=== PATIENT | male | born 1970 | race Caucasian/White ===

== ENCOUNTER 2022-11-30 19:57 | Emergency (ER) | payer OTHER, BC, SELFPAY ==
[2022-11-30] VITALS (17 sets, daily range): BP systolic 117–134; BP diastolic 81–91; PULSE 95–107; RESP 16; TEMP 37.1; O2SAT 92–95; BMI 42.3
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
[2022-11-30] MEDS: ONDANSETRON 2 MG/ML inj 4 MG IVP (21:33)
[2022-11-30] MEDS: HYDROmorphone 0.5 mg/0.5 ml inj IVP ×2 (21:33→22:57)
[2022-11-30 21:58] LABS: Basophils Absolute Auto 0.04 K/uL (0.00-0.30); Basophils Percent Auto 0.4 % (0.0-3.0); Eosinophils Absolute Auto 0.29 K/uL (0.00-0.50); Hematocrit 43.1 % (37.0-53.0); Hemoglobin* 14.3 gm/dL (13.5-17.5); Immature Granulocytes Abs Auto 0.02 K/uL (0.00-0.30); Immature Granulocytes Pct Auto 0.2 %; Lymphocytes Absolute Auto 2.79 K/uL (0.90-2.90); Lymphocytes Percent Auto 28.7 % (20-44); Mean Corpuscular HGB Conc 33 gm/dL (32-36); Mean Corpuscular Hemoglobin 29 pg (26-34); Mean Corpuscular Volume 89 fL (80-100); Monocytes Percent Auto 6.7 % (0.0-11.0); Neutrophils Absolute Auto 5.94 K/uL (1.7-7.0); Platelet Count* 297 K/uL (140-440); RDW Coefficient of Variation % 12.9 % (11.5-15.5); Red Blood Count 4.86 m/uL (4.30-5.90); White Blood Count* 9.73 K/uL (4.50-11.00)
[2022-11-30 22:00] LABS: Chloride* 103 mmol/L (96-114); Potassium* 4.4 mmol/L (3.6-5.1); Sodium* 140 mmol/L (135-149)
[2022-11-30 22:01] LABS: Slide Review Reflex No
[2022-11-30 22:03] LABS: Anion Gap 10 mEq/L (7-15); Blood Urea Nitrogen* 9 mg/dL (7-30); Calcium* 8.9 mg/dL (8.4-10.6); Carbon Dioxide* 27 mmol/L (20-32); Creatinine* 0.8 mg/dL (0.5-1.5); Est. Creatinine Clearance* 114.06; Estimated Glomerular Filt Rate 108 ml/min; Glucose* 159 mg/dL (60-115)
--- OUTSIDE RECORDS SUMMARY | 2022-11-30 22:05 | XMS_ITS | Continuity of Care Document ---
Author Name Unknown Organization [facility] Address [address] [address] [place] [address] Phone Care Team Providers Care Contact Manager Name Role Phone Kylah Lundy CRNA Unavailable Unavailable Allergies, Adverse Reactions, Alerts Substance Reaction Status Criticality No Known Allergies Active No Inform ation Medications Medication Instructions Dosage Effective Dates (start - stop) Status Comments metformin 500 mg tablet take 1 Tablet by oral route 2 times every day 500 MG - Active atorvastatin 40 mg tablet take 1 tablet by oral route every day 40 MG - Active lisinopril 20 mg tablet take 1 tablet by oral route every day 20 MG - Active pantoprazole 20 mg tablet,delayed release take 1 Tablet by oral route every day take 30-60 minutes before a meal. 20 MG - Active gabapentin 100 mg capsule take 1 capsule by oral route 2 times every day 100 MG - Active buspirone 30 mg tablet take 1 tablet by oral route 2 times every day 30 MG - Active Latuda 120 mg tablet take 1 tablet by oral route every day with food (at least 350 calories) 120 MG - Active oxcarbazepine 600 mg tablet take 2 Tablet by oral route every day 1200 MG - Active trihexyphenidyl 2 mg tablet take 1 tablet by oral route 2 times every day 2 MG - Active simvastatin 10 mg Tab Take one tablet by mouth daily - Active Zyrtec 5 mg Tab Take one tablet by mouth daily - Active Tylenol Arthritis 650 mg Tab Take two tablets before bedtime every night - No Longer Active Procedures Procedure Date Colonoscopy Flex; W/remov Les- Level Iv-surg Path Gross/micro 23 Esoph Motility Study; Offic Cons New/estab Mod-hi 60 09 Routine Serum Collection G8447 Carreon PH Monitor Ugi Endo; W/bx 1/mx Level Iv-surg Path Gross/micro 09 Offic Cons New/estab Mod 40 Mi 09 G8447 Advance Directives Directive Yes / No Effective Date File Name No Information Encounters Encounter Description Practice Location Reason(s) For Visit Diagnoses Date Provider Providers Copied on Encounter [facility], [address] [address], [place], [place], [id number], [place] tel:[phone] [facility] No Information 3 Nikkie Montero. [address] [facility], [facility] [address], [place], [place], [id number] , . tel:[phone] Referring Provider: Priti Martinez, [address], [address]. tel:[phone] [facility], [address] [address], [place], [place], [address], [place] tel:[phone] [facility] GI Symptoms or Concerns (chief complaint) Colorectal polypsEncounter for screening for malignant neoplasm of colonNeoplasm of uncertain behavior of colonBenign neoplasm of transverse colonOther fecal abnormalities 3 Dougie Marcos. [address] [facility], [facility] [address], [place], [place], [address] , [place]. tel:[phone] Referring Provider: [place], [address] [place], [address]. tel:[phone] [facility], [address] [address], [place], [place], [address], [place] tel:[phone] [facility] No Information 3 Phan De Dios. [address] [facility], [place], [place], [address] , [place]. tel: [phone] [facility], [address] [address], [place], [place], [address], [place] tel:[phone] [facility] Chest Pain NosEsophageal Spasm 9 Georgie Calix. [address] [facility], [address], [place], [place], [address] , [place]. tel: [phone] Referring Provider: Deny Vieira, [address], [place], [address]. tel:[phone] Offic Cons New/estab Mod-hi 60 [facility], [address] [address], [place], [address], [place] tel:[phone] [facility] Abdominal pain (chief complaint) Gastroesophagea l RefluxChest Pain NosChange In Bowel Habits 9 Georgie Calix. [address] [facility], [address], [facility] [place], [address] , [place]. tel: [phone] Referring Provider: Deny Vieira, [address], [place], [address]. [phone] [facility], [address] [address], [place], [address], [place] tel:[phone] [facility] No Information 9 Silvia Johnson. [address] [facility], [address], [facility] [place], [address] , [place]. tel: [phone] Referring Provider: Ronel Vieira, [address] [facility] [address], [address]. [phone] [facility], [address] [address], [place], [address], [place] tel:[phone] [facility] Gastritis W/o BleedPolyp-inte s/rect/stom-unc BehGastritis W/o BleedGastric Polyp-benignGas tric Polyp-benign Mar-0 2-200 9 Lorenzo Rodney. [address] [facility], [facility] [address], [place], [place], [address] , [place]. tel:[phone] Referring Provider: Ronel Vieira, [address] [facility] [address], [place], [address]. [phone] Offic Cons New/estab Mod 40 [facility], [address] [address], [place], [address], [place] tel:[phone] [facility] Chest pain (chief complaint) Chest Pain Nos 7200 9 Lorenzo Rodney. [address] [facility], [facility] [address], [place], [place], [address] , [place]. [phone] Referring Provider: Deny Bazan MD L, [address], [place], [address]. tel:[phone] Family History Family Member Type Diagnosis Age At Onset First degree family history Problem (finding) No history of Ulcerative Colitis First degree family history Problem (finding) No history of Cancer, colon Mother Problem (finding) Thyroid disorder First degree family history Problem (finding) No history of Crohn's Mother Problem (finding) GERD First degree family history Problem (finding) No Family history of No history of Colon Polyps Immunizations Vaccine Date Status Comments Pneumococcal conjugate vacci ne 20-valent (PCV20), polysaccharide [id number] conjugate, adjuvant, preservative free administered Note: [facility] bi-direct ional interface ; Source: Other Registry zoster vaccine recombinant administered N ote: [facility] bi-directional interface ; Source: Other Registry SARS-COV-2 (COVID-19) vaccin e, mRNA, spike protein, LNP, bivalent booster, preservative free, 50 mcg/0.5 mL or 25 mcg/0.25 mL dose administered Note: [facility] bi-direct ional interface ; Source: Other Registry Afluria Qd administered Note: [facility] bi-directional interface ; Source: Other Registry SARS-COV-2 (COVID-19) vaccin e, mRNA, spike protein, LNP, preservative free, 100 mcg/0.5mL dose or 50 mcg/0.25mL dose administered Note: [facility] bi -directional interface ; Source: Other Registry SARS-COV-2 (COVID-19) vaccin e, mRNA, spike protein, LNP, preservative free, 100 mcg/0.5mL dose or 50 mcg/0.25mL dose administered Note: [facility] bi -directional interface ; Source: Other Registry SARS-COV-2 (COVID-19) vaccin e, mRNA, spike protein, LNP, preservative free, 100 mcg/0.5mL dose or 50 mcg/0.25mL dose administered Note: [facility] bi -directional interface ; Source: Other Registry Influenza administered Note: [facility] bi-d irectional interface ; Source: Other Registry Afluria Qd administered Note: [facility] bi-directional interface ; Source: Other Registry Afluria Qd administered Note: [facility] bi-directional interface ; Source: Other Registry Afluria Qd administered Note: [facility] bi-directional interface ; Source: Other Registry Afluria Qd administered Note: [facility] bi-directional interface ; Source: Other Registry Afluria Qd administered Note: [facility] bi-directional interface ; Source: Other Registry Influenza, seasonal, injecta ble, preservative free administered Note: [facility] bi-direct ional interface ; Source: Other Registry tetanus toxoid, reduced diphtheria toxoid, and acellular pertussis vaccine, adsorbed administered Note: [facility] b i-directional interface ; Source: Other Registry Influenza, seasonal, injectable administe red Note: [facility] bi- directional interface ; Source: Other Registry Payers Payer name Insurance type Covered green party ID Authoriza tinavin(s) [employer] [id number] Social History Type Description Quantity Date Captured Comments Sex Male Smoking Status No Information Chief Complaint And Reason For Visit No Information Reason For Referral Reason For Referral No Information History Of Present Illness Encounter Date Complaint History Of Prese nt Illness GI Symptoms or Concerns Functional Status Date Functional Assessmen t No Information Instructions Date Instruction Additional Infor mation Colon Cancer Prevention Related to Colorectal polyps Colon Polyps Related to Color ectal polyps Assessments Type Assessment Date No Information Patient Care Teams Name Effective Dates (start - stop) Status Members No Information
--- OUTSIDE RECORDS SUMMARY | 2022-11-30 22:06 | XMS_ITS | Continuity of Care Document ---
Author Name Unknown Organization [facility] Address [address] [address] [place] [address] Phone Care Team Providers Care State Historical Society Director Name Role Phone Kylah Lundy CRNA Unavailable [...] Diagnoses Date Provider Providers Copied on Encounter [facility], [address] [address], [place], [place], [id number], [place] tel:[phone] [facility] No Information 3 Nikkie Montero. [address] [facility], [facility] [address], [place], [place], [id number] , . tel:[phone] Referring Provider: Priti Martinez, [address], [address]. tel:[phone] [facility], [address] [address], [place], [place], [address], [place] tel:[phone] [facility] GI Symptoms or Concerns (chief complaint) Colorectal polypsEncounter for screening for malignant neoplasm of colonNeoplasm of uncertain behavior of colonBenign neoplasm of transverse colonOther fecal abnormalities 3 Dougie Marcos. [address] [facility], [facility] [address], [place], [place], [address] , [place]. tel:[phone] Referring Provider: [place], [address] [place], [address]. tel:[phone] [facility], [address] [address], [place], [place], [id number], [place] tel:[phone] [facility] No Information 3 Phan De Dios. [address] [facility], [address], [place], [place], [address] , [place]. tel: [phone] [facility], [address] [address], [place], [address], [place] tel:[phone] [facility] Chest Pain NosEsophageal Spasm 9 Georgie Calix. [address] [facility], [address], [place], [place], [address] , [place]. tel: [phone] Referring Provider: Deny Vieira, [address], [place], [address]. tel:[phone] Offic Cons New/estab Mod-hi 60 [facility], [address] [address], [place], [address], [place] tel:[phone] [facility] Abdominal pain (chief complaint) Gastroesophagea l RefluxChest Pain NosChange In Bowel Habits 9 Georgie Calix. [address] [facility], [address], [facility], [place], [address] , [place]. tel: [phone] Referring Provider: Deny Vieira, [address], [place], [address]. [phone] [facility], [address] [address], [place], [place], [address], [place] tel:[phone] [facility] No Information 9 Silvia Johnson. [address] [facility], [address], [place], [address] , [place]. tel: [phone] Referring Provider: Ronel Vieira, [address] [facility] [address], [place], [address]. [phone] [facility], [address] [address], [place], [address], [place] tel:[phone] [facility] Gastritis W/o BleedPolyp-inte s/rect/stom-unc BehGastritis W/o BleedGastric Polyp-benignGas tric Polyp-benign Mar-0 2-200 9 Lorenzo Rodney. [address] [facility], [facility] [address], [place], [place], [address] , [place]. tel:[phone] Referring Provider: Ronel Vieira, [address] [facility] [address], [place], [address]. [phone] Offic Cons New/estab Mod 40 [facility], [address] [address], [place] [address], [place] tel:[phone] [facility] Chest pain (chief complaint) Chest Pain Nos 7200 9 Lorenzo Rodney. [address] [facility], [facility] [address], [place], [place], [address] , [place]. [phone] Referring Provider: Deny Bazan MD L, [address], [place], [address]. tel:[phone] Family History Family Member Type Diagnosis Age [...] Pneumococcal conjugate vacci ne 20-valent (PCV20), polysaccharide [id number] conjugate, adjuvant, preservative free administered Note: MIIC [...] Registry Payers Payer name Insurance type Covered constitution party ID Authoriza tinavin(s) [employer] [id number] Social History Type Description Quantity Date Captured [...]
[2022-11-30 22:16] LABS: Troponin I* < 0.01 ng/mL (0.01-0.04)
[2022-12-01] MEDS: TRAMADOL HCL 50 MG TABLET PO (00:13)
== END 2022-12-01 00:49 | disposition home or self-care (01) ==
PROVIDERS: Emergency Provider Emergency Medicine; PCP Family Medicine
DX: S22.41XA Multiple fractures of ribs, right side, initial encounter for closed fracture (principal); S22.20XA Unspecified fracture of sternum, initial encounter for closed fracture; V43.92XA Unspecified car occupant injured in collision with other type car in traffic accident, initial encounter
CPT/HCPCS: 36415; 71260; 80048; 84484; 85025; 96374; 96375; 99283; 99284; 99285; A9270; J1170; J2405; Q9967

== ENCOUNTER 2023-12-23 10:21 | Emergency (ER) | payer BC, SELFPAY ==
[2023-12-23 10:28] VITALS: BP 153/94; PULSE 74; RESP 18; TEMP 36.2; O2SAT 97; BMI 42.3
--- NOTE | 2023-12-23 11:16 | CT_ITS ---
Patient: FLORA SANABRIA Facility:?[facility] Patient ID:?[id number] Site Patient ID:?[id number]. Site :?[id number] Study:?CT-Neck Angio Angio 95 CC'S ISOVUE 370 NON ACUTE-12/23/2023 12:31:01 PM Ordering Physician:Bernardo Villa Final Report: DATE: 12/23/2023 CLINICAL HISTORY: Patient with focal neurological deficits. TECHNIQUE: Standard helical CT image acquisition of the neck up to the skull base after bolus intravenous contrast enhancement. 2D and 3D MIP images for post-processing were performed and interpreted on an independent workstation and 3D images were permanently archived. COMPARISON: CT same day. FINDINGS: The origins of the great vessels from the aortic arch are patent. The origin of the right vertebral artery is patent. The origin of the left vertebral artery is patent. The common carotid arteries are patent. There is no stenosis at the origin of the right internal carotid artery. There is no stenosis at the origin of the left internal carotid artery. The rest of the cervical segments of the internal carotid arteries are patent up to the skull base. The left vertebral artery is dominant. The cervical segments of the vertebral arteries are patent up to the skull base. The visualized lung apices are unremarkable. The thyroid gland is unremarkable. The soft tissues of the neck are unremarkable. There are degenerative changes in the cervical spine. IMPRESSION: Patent cervical vasculature. Please note that all CT scans at this facility use dose modulation, iterative reconstruction, and/or weight-based dosing when appropriate to reduce radiation dose to as low as reasonably achievable. Dictated by Allyssa Tony MD @ 12/23/2023 6:10:26 PM Signed by:?Allyssa Tony MD @12/23/2023 6:10:26 PM (Electronic Signature)
--- NOTE | 2023-12-23 11:16 | CRLHL7_ITS ---
For Patients: As a result of the Century Cures Act, medical imaging exams and procedure reports are released immediately into your electronic medical record. You may view this report before your referring provider. If you have questions, please contact your health care provider. Indication: Neck headache dizzy sweats Technique: Noncontrast head CT Comparison: No comparison Findings: Axial noncontrast images through the brain parenchyma demonstrates no acute intracranial hemorrhage or mass. No midline shift. No abnormal extra-axial air or fluid collections are seen. Skull and scalp are unremarkable. Impression: No acute intracranial hemorrhage or mass. Headache dizziness Please note that all CT scans at this facility use dose modulation, iterative reconstruction, and/or weight-based dosing when appropriate to reduce radiation dose to as low as reasonably achievable. Dictated by Janett Saini MD @ 12/23/2023 12:36:14 PM (Electronically Signed)
--- NOTE | 2023-12-23 11:16 | CRLHL7_ITS ---
For Patients: As a result of the Century Cures Act, medical imaging exams and procedure reports are released immediately into your electronic medical record. You may view this report before your referring provider. If you have questions, please contact your health care provider. DATE: 12/23/2023 CLINICAL HISTORY: Patient with focal neurological deficits. TECHNIQUE: Standard helical CT image acquisition through the intracranial circulation following intravenous administration of contrast material with bolus tracking. 2D and 3D MIP images for post-processing were performed and interpreted on an independent workstation and 3D images were permanently archived. COMPARISON: CT same day. FINDINGS: There is no cerebral aneurysm or large vessel occlusion. The right internal carotid artery is normal. The right middle cerebral artery and its branches are normal. The right anterior cerebral artery and its branches are normal. The left internal carotid artery is normal. The left middle cerebral artery and its branches are normal. The left anterior cerebral artery and its branches are normal. The anterior communicating artery is well visualized and appears normal. The right vertebral artery and PICA are normal. The left vertebral artery and PICA are normal. The left vertebral artery is dominant. The basilar artery is patent and appears normal. The right posterior cerebral artery is normal. The left posterior cerebral artery is normal. The visualized venous structures are patent. IMPRESSION: Patent proximal intracranial vasculature without intracranial aneurysms. Please note that all CT scans at this facility use dose modulation, iterative reconstruction, and/or weight-based dosing when appropriate to reduce radiation dose to as low as reasonably achievable. Dictated by Allyssa Tony MD @ 12/23/2023 6:11:36 PM (Electronically Signed)
--- OUTSIDE RECORDS SUMMARY | 2023-12-23 11:45 | XMS_ITS | Referral Summary ---
Author Organization [facility] Address [address] [place] [address] Care Team Providers Care Boiler Water Tester Name Role Phone Clinic, [facility] Primary Care Provider Allergies No known active allergies Medications Medication Sig Dispensed Refills Start Date End Date Status gabapentin (NEURONTIN) 100 MG capsule Take 100 mg by mouth 2 times daily Active pantoprazole (PROTONIX) 20 MG EC tablet Take 20 mg by mouth every evening Active aspirin (ASPIRIN LOW DOSE) 81 MG EC tablet Take 81 mg by mouth every morning Active atorvastatin (LIPITOR) 40 MG tablet Take 40 mg by mouth every evening Active lisinopril (ZESTRIL) 20 MG tablet Take 20 mg by mouth every morning Active metFORMIN (GLUCOPHAGE) 500 MG tablet Take 500 mg by mouth 2 times daily (with meals) Active cetirizine (ZYRTEC) 10 MG tablet Take 10 mg by mouth every morning Active [place]-3 Fatty Acids (FISH OIL) 1200 MG capsule Take 1,200 mg by mouth every evening Active multivitamin w/minerals (THERA-VIT-M) tablet Take 1 tablet by mouth every morning Active trihexyphenidyl (ARTANE) 2 MG tablet Take 4 mg by mouth At Bedtime Active busPIRone HCl (BUSPAR) 30 MG tablet Take 30 mg by mouth 2 times daily Active OXcarbazepine (TRILEPTAL) 600 MG tablet Take 600 mg by mouth 2 times daily Active lurasidone (LATUDA) 120 MG TABS tablet Take 120 mg by mouth every evening Active acetaminophen (TYLENOL) 325 MG tabletIndications:C losed fracture of sternum, unspecified portion of sternum, initial encounter Take 3 tablets (975 mg) by mouth every 8 hours 11/21/2022 Active ibuprofen (ADVIL/MOTRIN) 600 MG tabletIndications:C losed fracture of sternum, unspecified portion of sternum, initial encounter Take 1 tablet (600 mg) by mouth every 6 hours as needed for moderate pain 11/21/2022 Active oxyCODONE (ROXICODONE) 5 MG tabletIndications:C losed fracture of sternum, unspecified portion of sternum, initial encounter Take 0.5-1 tablets (2.5-5 mg) by mouth every 4 hours as needed for moderate to severe pain (IF pain not managed with non-pharmacological and non-opioid interventions) 12 tablet 11/21/2022 Active senna-docusate (SENOKOT-S/PERICOLA CE) 8.6-50 MG tabletIndications:D rug-induced constipation Take 1 tablet by mouth 2 times daily as needed for constipation 11/21/2022 Active hydrOXYzine (ATARAX) 25 MG tabletIndications:C losed fracture of sternum, unspecified portion of sternum, initial encounter Take 1 tablet (25 mg) by mouth 3 times daily as needed for other (pain adjuvant) 24 tablet 11/21/2022 Active Active Problems Problem Noted Date Diagnosed Date Sternal fracture 11/20/2022 Social History Tobacco Use Types Packs/Day Years Used Date Smoking Tobacco: Never Assessed Adolescent Education Answer Date Record ed Getting School Help Needed Not on file 01/20 Sex and Gender Information Value Date Recorded Sex Assigned at Not on file Gender Identity Not on file Sexual Orientation Not on file Last Filed Vital Signs Vital Sign Reading Time Taken Comments Blood Pressure 120/79 11/21/2022 3:26 PM CDT Pulse 72 11/21/2022 3:26 PM CDT Temperature 36.6 ??C (97.9 ??F) 11/21/2022 3:26 PM CD T Respiratory Rate 16 11/21/2022 3:26 PM CDT Oxygen Saturation 96% 11/21/2022 3:26 PM CDT Inhaled Oxygen Concentration - - Weight 136.5 kg (301 lb) 11/20/2022 7:01 PM CDT Height 177.8 cm (5' 10) 11/20/2022 7:01 PM CDT Body Mass Index 43.19 11/20/2022 7:01 PM CDT Plan of Treatment Not on file Procedures Procedure Name Priority Date/Time Associated Diagnosis Comments GLUCOSE BY METER Routine 11/21/2022 2:05 AM CDT from Last 3 Months or Most Recently Relevant to Health Maintenance Results * (ABNORMAL) Glucose by meter (11/21/2022 2:05 AM CDT) GLUCOSE BY METER POCT 120(H) 70 - 99 mg/dL 11/21/2022 2:12 AM CDT LABORATORY POC Blood, Capillary BLOOD SPECIMEN / Unknown 11/21/2022 2:05 AM CDT 11/21/2022 2:12 AM CDT rBianne Francis MD [facility] POCT Performing Organization Address City/State/[facility] Co de Phone Number [facility] LABORATORY [facility] Acute Care Lab [address] [facility] Lab (1st floor, no room number) [place] [address], [facility] [phone] from Last 3 Months or Most Recently Relevant to Health Maintenance Advance Directives For more information, please contact: [phone] * Full Code (Latest Code Status on File) Date Activated Date Inactivated Comments 11/20/2022 9:09 PM 11/21/2022 7:20 PM All basic an d advanced life-sustaining interventions are performed as appropriate Question Answer Comments Code status determined by: Discussion with khushboo nt/ legal decision maker Care Teams Boiler Water Tester Relationship Specialty Start Date End Date [facility], [facility] [address] [place] [address] PCP - General 07/20/12
--- OUTSIDE RECORDS SUMMARY | 2023-12-23 11:45 | XMS_ITS | Clinical Summary ---
Author Organization [facility] Address [address] [place] [address] Care Team Providers Care Rn Lab Name Role Phone Clinic, [facility] Primary [...] 10 mg by mouth every morning Active [place]-3 Fatty Acids (FISH OIL) 1200 MG capsule [...] 11/20/2022 7:01 PM CDT Plan of Treatment Health Maintenance Due Date Last Done Comments ADVANCE CARE PLANNING 1972 ANNUAL REVIEW OF HM ORDERS 1972 CT COLONOGRAPHY 1972 FIT 1972 FLEX SIG 1972 LIPID 1972 COLONOSCOPY 1982 HIV SCREENING 1987 HEPATITIS C SCREENING 1990 HEPATITIS B IMMUNIZATION (1 of 3 - 19+ 3-dose series) 1991 YEARLY PREVENTIVE VISIT 12/27/2022 12/27/2021, 11/12 PHQ-2 (once per calendar year) 2023 COVID-19 Vaccine ( season) 2023 12/27/2021, 03/01/2021, 07/12/2020, Additional history exists INFLUENZA VACCINE (#1) 2023 , 01/07/2021, 12/27/2019, Additional history exists COLORECTAL CANCER SCREENING 05/16/2025 sDNA (Cologuard) 05/16/2025 05/16/2022 GLUCOSE 11/21/2025 11/21/2022, 11/04, 11/20/2022, Additional history exists DTAP/TDAP/TD IMMUNIZATION (5 - Td or Tdap) 05/02/2029 05/02/2019, 06/03/2017, 05/26/2017, Additional history exists Pneumococcal Vaccine: Pediatrics (0 to 5 Years) and At-Risk Patients (6 to 64 Years) Aged Out 05/23/2022 No longer eligible based on patient's age to complete this topic ZOSTER IMMUNIZATION Completed 07/18/2022, HPV IMMUNIZATION Aged Out No longer e ligible based on patient's age to complete this topic MENINGITIS IMMUNIZATION Aged Out No l onger eligible based on patient's age to complete this topic RSV MONOCLONAL ANTIBODY Aged Out No l onger eligible based on patient's age to complete this topic Procedures Procedure Name Priority Date/Time Associated Diagnosis Comments GLUCOSE BY METER Routine 11/21/2022 2:05 AM CDT from Last 3 Months or Most Recently Relevant to Health Maintenance Results * (ABNORMAL) Glucose by meter (11/21/2022 2:05 AM CDT) GLUCOSE BY METER POCT 120(H) 70 - 99 mg/dL 11/21/2022 2:12 AM CDT RH LABORATORY POC Blood, Capillary BLOOD SPECIMEN / Unknown 11/21/2022 2:05 AM CDT 11/21/2022 2:12 AM CDT Brianne Francis MD LAB - [facility] POCT LABORATORY [facility] Acute Care Lab [address] [facility] Lab (1st floor, no room number) [place] [address], [facility] [phone] from Last 3 Months or Most Recently Relevant to Health Maintenance Insurance Payer Benefit Plan / Group Subscriber ID Effective Dates Phone Address Type BCBS BCBS OUT OF STATE [id number] 2021-Present [phone] [address] [address] [place] [address] Indemnity [employer] [id number] 2022-Pre sen t [phone] [address] [place] [address] Indemnity Advance Directives For more information, please contact: [phone] * Full Code (Latest Code Status on File) Date Activated Date Inactivated Comments 11/20/2022 9:09 PM 11/21/2022 7:20 PM All basic an d advanced life-sustaining interventions are performed as appropriate Question Answer Comments Code status determined by: Discussion with khushboo nt/ legal decision maker Care Teams Rn Lab Relationship Specialty Start Date End Date Clinic, [facility] [address] [place] [address] PCP - General 07/20/12
--- OUTSIDE RECORDS SUMMARY | 2023-12-23 11:45 | XMS_ITS | Clinical Summary ---
Author Organization [facility] Address [place], [place] [address] Care Team Providers Care [facility] Director Name Role Phone BillvannesaloreStefany Primary Care Provider Allergies Active Allergy Reactions Criticality Noted Date Comments Liraglutide (Weight Loss) Rash 09/03/2021 Injection site reaction. Medications Medication Sig Dispensed Refills Start Date End Date Status OXcarbazepine (TRILEPTAL) 600 mg tabletIndications:Bi polar depression (HC) Take 1 tablet by mouth 2 times daily. 0 03/10/2014 Active lurasidone (LATUDA) 120 mg tabIndications:Bipol ar depression (HC) Take by mouth with dinner. 0 04/19/2014 Active Blood Pressure Test Kit-Large kitIndications:HTN (hypertension) As directed. Blood pressure home check as directed, diagnosis hypertension. Any kit covered by insurance 1 Kit 0 06/05/2014 Active trihexyphenidyl (ARTANE) 2 mg tablet Take 4 mg by mouth at bedtime. 4 10/03/2015 Active cetirizine (ZYRTEC) 10 mg tablet Take 1 tablet by mouth once daily. 0 08/01/2019 Active gabapentin (NEURONTIN) 100 mg capsule Take 100 mg by mouth two times daily. 05/09/2021 Active busPIRone (BUSPAR) 30 mg tablet Take 30 mg by mouth 2 times daily. 04/28/2021 Active aspirin (ECOTRIN) 81 mg enteric coated tabletIndications:Ty pe 2 diabetes mellitus without complication, without long-term current use of insulin (HC) Take 1 Tablet (81 mg) by mouth once daily with a meal. 0 05/23/2022 Active acetaminophen (TYLENOL) 325 mg tablet Take 975 mg by mouth every 8 hours. 11/21/2022 Active fish oil-omega-3 fatty acids (FISH OIL) 1,200-360 mg cap Take 1,200 mg by mouth. Active geriatric ontfihzqweyv-scxh-hv nerals (GERITOL; CENTRUM SILVER) tablet Take 1 Tablet by mouth every morning. Active tiZANidine (ZANAFLEX) 2 mg tablet TAKE 1 TO 2 TABLETS BY MOUTH AT BEDTIME (PRIOR TO BED) FOR MUSCLE SPASMS 05/13/2023 Active FreeStyle Jez 2 SensorIndications:Ty pe 2 diabetes mellitus without complication, without long-term current use of insulin (HC) To be used to read blood sugars per concrete technician's directions. 6 Each 05/15/2023 Active FreeStyle Jez 2 ReaderIndications:Ty pe 2 diabetes mellitus without complication, without long-term current use of insulin (HC) To be used to read blood sugars per concrete technician's directions. 1 Each 05/15/2023 Active metFORMIN (GLUCOPHAGE) 500 mg tabletIndications:Ty pe 2 diabetes mellitus without complication, without long-term current use of insulin (HC) Take 2 Tablets (1,000 mg) by mouth two times daily with meals. 360 Tablet 3 05/15/2023 Active atorvastatin (Lipitor) 40 mg tabletIndications:Mi xed dyslipidemia Take 1 Tablet (40 mg) by mouth at bedtime. 90 Tablet 3 11/20/2023 Active lisinopriL (PRINIVIL; ZESTRIL) 20 mg tabletIndications:Es sential hypertension Take 1 Tablet (20 mg) by mouth once daily. 90 Tablet 3 11/20/2023 Active pantoprazole (PROTONIX) 20 mg tabletIndications:Ga stroesophageal reflux disease with esophagitis without hemorrhage Take 1 Tablet (20 mg) by mouth once daily. 90 Tablet 3 11/20/2023 Active meloxicam 15 mg tabletIndications:Ne ck pain, chronic Take 1 Tablet (15 mg) by mouth once daily. 11/20/2023 Active Active Problems Problem Noted Date Diagnosed Date Osteoarthritis of cervical spine with myelopathy 05/06/2023 Colon polyps 06/11/2022 Type 2 diabetes mellitus wit hout complication, without long-term current use of insulin 05/23/2022 Positive colorectal cancer screening using Colog uard test 05/23/2022 Controlled type 2 diabetes m ellitus without complication, without long-term current use of insulin 05/06/2022 Morbid obesity with BMI of 40.0-44.9, adult 08/09/2019 Vitamin D deficiency 11/13/2017 Binge eating disorder 04/24/2015 Pre-diabetes 03/08/2013 Bipolar depression 12/20/2012 Essential hypertension 12/02/2012 TASIA (obstructive sleep apnea) 09/28/2012 Anxiety disorder 08/03/2012 PTSD (post-traumatic stress disorder) associated to psychotic symptoms 08/03/2012 Allergic rhinitis, cause unspecified 10/15/2010 Mixed dyslipidemia 03/08/2008 Overview (05/04/2019): ASCVD 10 year risk 5.26%. Restless legs syndrome (RLS) 04/30/2007 Overview (04/30/2007): He had side effects from Mirapex-kept him up, made him goofy and depressed Obesity, unspecified 04/30/2007 Esophageal reflux 02/04/2007 Resolved Problems Problem Noted Date Diagnosed Date Resolved Date PTSD (post-traumatic stress disorder) 06/24/2012 08/03/2012 Depression 06/22/2012 12/20/2012 Schizophrenia, undifferentiated 06/11/2012 08/03/2012 PTSD (post-traumatic stress disorder) 03/09/2012 08/03/2012 Chest pain, unspecified 05/01/200611/2007 Elevated blood pressure read ing without diagnosis of hypertension 05/01/2006 01/17/2013 Encounters Date Type Department Care Team Description 12/23/2023 Nurse Triage [facility] [address] [place] [address] Stefany Smith DO Dizziness 11/27/2023 Telephone [facility] [address] [place] [address] Stefany Smith DO Form (Physician results form) 11/20/2023 7:00 AM CDT Office Visit [facility] [address] [place] [address] Stefany Smith DO Diabetes (fasting) 11/19/2023 Travel from Last 3 Months Immunizations Name Administration Dates Next Due AMB Influenza, IIV4 PF (=>6 mos Flulaval,Fluzone Fluarix)(Flu Clinic Only) 12/27/2019,01/03/2015 COVID-19 VACCINE SPIKEVAX (M ODERNA 50MCG/0.5ML) 12YO+ PFS 02/09/2023 COVID-19 vaccine (Moderna 50mcg/0.5mL) 12YO+ BIVALENT PF, MDV 12/27/2021 Influenza Virus, Unspecified 03/21/2009 Influenza, IIV3 (Age >=3 years) 12/28/2012,03/08 Influenza, IIV4 12/17/2022,,01/07/2021,2017,12/03/2016,12/31/2015,11/22/2013 Influenza, IIV4 (=>6mos) MDV 12/17/2018 Pneumococcal Conj 20-valent (Prevnar 20) 05/23/2022 Td (Age >=7 Years) 05/02/2019,06/03/2017 Tdap 03/08/2008 Zoster (Shingrix-RZV, recombinant) 07/18/2022, Family History Medical History Relation Name Comments Good Health Brother 2 Older Alcohol/Drug Brother 3 Meth, heroin Alcohol/Drug Father Past heavy EtOH use Heart Disease Father Several Stents Hypertension Father Other Maternal Grandfather Lupus Arthritis Mother Hypertension Mother Relation Name Status Comments Brother 1 Executed becau se he killed two people Brother 2 Brother 3 Father Alive Maternal Grandfather Mother Alive Social History Tobacco Use Types Packs/Day Years Used Date Smoking Tobacco: Former Cigarettes 0.5 10 0 04/06/1986 - 04/06/1996 Passive Smoke Exposure: Never Smokeless Tobacco: Never Tobacco Cessation:Counseling Given: Not Answered Alcohol Use Standard Drinks/Week Comments No 0 (1 standard drink = 0.6 oz pure alcohol) Heavier use when younger, 1-2 beers occasionally (avoids due to medication) PHQ-2 Answer Date Recorded PHQ-2 TOTAL SCORE 4 11/20/2023 Social Connections Answer Date Recorded Frequency of Communication with Friends and Fami ly 0 05/05/2023 Financial Resource Strain Answer Date R ecorded Difficulty of Paying Living Expenses 3 05/05/2023 Difficulty of Paying Living Expenses Not on file 05/05/2023 Food Insecurity Answer Date Recorded Worried About Running Out of Food in the Last Ye ar 1 05/05/2023 Transportation Needs Answer Date Record ed Lack of Transportation (Medical) 1 05/05/2023 Housing Stability Answer Date Recorded Unable to Pay for Housing in the Last Year 1 05/05/2023 Sex and Gender Information Value Date Recorded Sex Assigned at Not on file Gender Identity Not on file Sexual Orientation Not on file Obstetrics History Last Filed Vital Signs Vital Sign Reading Time Taken Comments Blood Pressure 110/82 11/20/2023 7:08 AM CDT Pulse 66 11/20/2023 7:08 AM CDT Temperature 36.7 ??C (98.1 ??F) 08/05/2020 9:04 AM CD T Respiratory Rate 16 10/13/2022 9:06 AM CDT Oxygen Saturation 94% 11/20/2023 7:08 AM CDT Inhaled Oxygen Concentration - - Weight 136.5 kg (301 lb) 11/20/2023 7:08 AM CDT Height 177.8 cm (5' 10) 05/15/2023 7:04 AM [facility] Body Mass Index 43.19 05/15/2023 7:04 AM [facility] DEPARTMENT Plan of Treatment Upcoming Encounters Date Type Department Care Team (Late st Contact Info) Description 05/20/2024 7:00 AM [facility] DE[facility] Office Visit [facility] [address] [place] [address] [place] [address] [address] [place], [place] [id number] Health Maintenance Due Date Last Done Comments Hepatitis B series for Diabe daphne (1 of 3 - 19+ 3-dose series) 1991 Influenza for age 50-64 12/06/2023 12/18/19 23, 12/27/2021, 01/07/2021, Additional history exists BMI (ht and wt on same day) for age 18+ 05/15/2024 05/15/2023, 01/07/2023, 11/14/2022, Additional history exists Depression screening for age 12+ 11/19/2024 11/20/2023, 05/05/2022, 05/15/2021, Additional history exists Colonoscopy through age 75 06/04/2025 06/04/2022 Lipids for age 45-75 08/13/2028 08/14/2023, 11/14/2022, 01/31/2022, Additional history exists Tetanus booster 05/02/2029 05/02/2019, 05/08, 03/08/2008 Tdap Completed 03/08/2008 Hepatitis C screening for ag e 18-79 Completed 12/27/2021 HIV for age 15-65 Completed 05/05/2022 Fecal testing sDNA-FIT (Cologuard) for age 45-75 Discontinued 05/16/2022 Pneumococcal series for age 6-64 Completed 05/23/19 Zoster (shingles) series for age 50+ Completed 07/18/2022, 05/23/2022 COVID-19 vaccine series Completed 02/10/20, 12/27/2021, 03/01/2021, Additional history exists Goals Goal Patient Goal Type Associated Problems Recent Progress Patient-Stated? Author BLOOD PRESSURE - MAINTAINS BP less than 140/90 Blood Pressure Yashira Bauer MD Procedures Procedure Name Priority Date/Time Associated Diagnosis Comments HEMOGLOBIN A1C Routine 11/20/2023 7:04 AM CDT Type 2 diabetes mellitus without complication, without long-term current use of insulin (HC) LIPID PANEL W REFLEX MEASURED LDL Routine 08/14/2023 7:33 AM CDT Persons encountering health services in other specified circumstances High risk medications (not anticoagulants) long-term use SCAN-COLONOSCOPY 06/04/2022 2:30 PM [facility]ATION DEPARTMENT SDNA-FIT EXTERNAL (COLOGUARD) Routine 05/16/2022 10:30 AM [facility]ATION DEPARTMENT Screening for colon cancer LC HIV-1/O/2, 4TH GENERATION Routine 05/05/2022 3:37 PM [facility]ATION DEPARTMENT Screening for HIV (human immunodeficiency virus) ANTI HCV Routine 12/27/2021 8:39 AM CDT Need for hepatitis C screening test from Last 3 Months or Most Recently Relevant to Health Maintenance Results * (ABNORMAL) HEMOGLOBIN A1C MONITORING (POCT) (11/20/2023 7:04 AM CDT) HEMOGLOBIN A1C MONITORING (POCT) 6.5(H) <=6.4 % 11/20/2023 7:11 AM CDT [facility] Blood BLOOD SPECIMEN / Unknown Venipuncture / Unknown 11/20/2023 7:04 AM CDT 11/20/2023 7:04 AM CDT Narrative [facility] - 11/20/2023 7:11 AM CDT ? (<=6.9%) ? Indicates good control ? (7.0% to 7.9%) ? Indicates fair control ? (>=8.0%) ? Indicates poor control ?? NOTE: ??These thresholds are guidelines and ?individual targets may vary. Falsely low levels may be seen with: Recent Transfusion, Recent Significant Blood Loss, Hemolytic Diseases, or Falsely elevated levels may be seen with: Untreated Anemias, Splenectomy ? Stefany Smith DO CHEMISTRY [facility] [address] [place] [address], * (ABNORMAL) LIPID PANEL W REFLEX MEASURED LDL (08/14/2023 7:33 AM CDT) CHOLESTEROL,TOTAL 135 100 - 199 mg/dL 08/14/2023 4:44 PM CDT [facility] Comment: Cholesterol, Total Reference Ranges Desirable <200 mg/dL Borderline 200-239 mg/dL High >=240 mg/dL TRIGLYCERIDES 102 <150 mg/dL 08/14/2023 4:44 PM CDT [facility] HDL CHOLESTEROL 36(L) >40 mg/dL 4:44 PM CDT [facility] NON-HDL CHOLESTEROL 99 <145 mg/dl 08/14/2023 4:44 PM CDT [facility] CHOL/HDL RATIO 3.75 <4.50 08/14/2023 4:44 PM CDT [facility] LDL CHOLESTEROL 79 <=130 mg/dL 08/14/2023 4:44 PM CDT [facility] VLDL CHOLESTEROL 20 <=30 mg/dL 08/14/2023 4:44 PM CDT [facility] PROVIDER ORDERED STATUS FASTING 08/14/2023 4:44 PM CDT [facility] Blood BLOOD SPECIMEN / Unknown Venipuncture / Unknown 08/14/2023 7:33 AM CDT 08/14/2023 7:33 AM CDT Stefany Smith DO [facility] [address] [place] [address], * SCAN-COLONOSCOPY (06/04/2022 2:30 PM [facility]F [facility]RARIAN CIRCULATION DEPARTMENT) Narrative Procedure Note Priti Constantino MD - 06/04/2022 1:24 PM CST [facility] [address] [place] [address], [address], [place] [address] Patient Name: Chris Bain Gender: Male Exam Date: 06/04/2022 Visit Number: [id number] Age: 52 Years Date of : 1970 Attending MD: Priti Constantino MD Medical Record#: [id number] Procedure: Colonoscopy Indications: Screening after positive non-invasive stool test Referring MD: Stefany Smith DO Primary MD: Stefany Smith DO Medications: Admitting Medications: 0.9% Normal Saline at TKO Intra Procedure Medications: Patient received monitored anesthesia care. Complications: No immediate complications Procedure: An examination of the heart and lungs was performed and found to be withinacceptable limits. . The patient was therefore deemed a reasonablecandidate for endoscopy and sedation. The risks and benefits of the procedure were explained to the patient.After obtaining informed consent, the patient received monitoredanesthesia care and I passed the scope without difficulty via the rectum to the cecum. The appendiceal orificeand ic valve were identified. The scope was retroflexed during theexamination The quality of the prep was good (Steffen/Gat Split). This was a complete examination throughout the entire colon. Findings: Polyp location: transverse colon. Quantity: 1. Size: 3 mm. Polyp shape:sessile. Maneuver: polypectomy was performed with a cold snare. Removal: complete. Retrieval: complete. Bleeding: none. Polyp location: descending colon. Quantity: 1. Size: 21-25 mm. Polypshape: pedunculated. Maneuver: polypectomy was performed with a hot snare andhemoclip. Removal: complete. Retrieval: complete. Bleeding: none. Anal canal: normal Remainder of the exam is normal. Impression: Colorectal polyps Preliminary Plan: Repeat colonoscopy in 3 years Pathology Results: A: COLON, DESCENDING, POLYP: 1. Tubulovillous adenoma with high grade dysplasia which is anadvanced adenoma (see comment) 2. Negative for malignancy 3. Per the colonoscopy report: a. Polyp size: 21-25 mm b. Resection: Complete c. Retrieval: Complete 4. The stalk is lined by normal colonic mucosa, further supportingcompleteness of removal B: COLON, TRANSVERSE, POLYP: 1. Sessile serrated adenoma 2. Negative for overt dysplasia 3. Per the colonoscopy report: a. Polyp size: 3 mm b. Resection: Complete c. Retrieval: Complete COMMENTS A. Advanced adenoma of the colorectum is defined by the [employer] (ACG) as an adenoma that is 1 cm or more in size,contains an appreciable villous component, or has high grade dysplasia(Sanket ANDERSON; Polyp Guideline: Diagnosis, Treatment, and Surveillance forPatients with Colorectal Polyps. Am J [id number];95(11):6491-7011). This polyp qualifies as such. Patients withadvanced adenomas are at increased risk for synchronous and metachronousadditional advanced adenomas. Appropriate follow-up is suggested. MICROSCOPIC A: Performed B: Performed Electronically signed by: Ankit Castillo [place] [address] Orders Instruction(s)/Education: Instruction/Education Timeframe Assessment Colon Cancer Prevention K63.5 Colon Polyps K63.5 _Electronically signed by: Priti Constantino MD 06/04/2022 cc: Stefany Smith DO cc: Stefany Smith DO Priti Constantino MD OTHER * (ABNORMAL) SDNA-FIT EXTERNAL (COLOGUARD) (05/16/2022 10:30 AM [facility]F [facility]IAN CIRCULATION DEPARTMENT) NONINV COLON CA DNA+OCC BLD SCRN STL-IMP Positive( A) Negative 05/23/2022 3:15 AM CHIEF [facility]RARIAN CIRCULATION DEPARTMENT [employer] [facility] (CLIA #:[id number]) Comment: POSITIVE TEST RESULT. A positive Cologuard result should be followed with a colonoscopy or visual examination of the colon. The normal value (reference range) for this assay is negative. TEST DESCRIPTION: Composite algorithmic analysis of stool DNA-biomarkers with hemoglobin immunoassay. ?? Quantitative values of individual biomarkers are not reportable and are not associated with individual biomarker result reference ranges. Cologuard is intended for colorectal cancer screening of adults of either sex, 45 years or older, who are at average-risk for colorectal cancer (CRC). Cologuard has been approved for use by the U.S. FDA. The performance of Cologuard was established in a cross sectional study of average-risk adults aged 50-84. Cologuard performance in patients ages 45 to 49 years was estimated by sub-group analysis of near-age groups. Colonoscopies performed for a positive result may find as the most clinically significant lesion: colorectal cancer [4.0%], advanced adenoma (including sessile serrated polyps greater than or equal to 1cm diameter) [20%] or non- advanced adenoma [31%]; or no colorectal neoplasia [45%]. These estimates are derived from a prospective cross-sectional screening study of 10,000 individuals at average risk for colorectal cancer who were screened with both Cologuard and colonoscopy. (Kadi Vaughn al, N Engl J Med 2014;370(14):9726-5097.) Cologuard may produce a false negative or false positive result (no colorectal cancer or precancerous polyp present at colonoscopy follow up). A negative Cologuard test result does not guarantee the absence of CRC or advanced adenoma (pre-cancer). The current Cologuard screening interval is every 3 years. ([employer] Society and U.S. Multi-Society Task Force). Cologuard performance data in a 10,000 patient pivotal study using colonoscopy as the reference method can be accessed at the following location: www.FanTrail/results. Additional description of the Cologuard test process, warnings and precautions can be found at www.cologuard.com. Stool specimen (specimen) (Rectum) 05/16/2022 10:30 AM [facility]F [facility]RARIAN CIRCULATION DEPARTMENT 05/17/2022 11:49 AM CHIEF [facility]RARIAN CIRCULATION DEPARTMENT Stefany Smith DO URINE [facility] [facility] (CLIA #:[id number]) [place] [address], * LC HIV-1/O/2, 4TH GENERATION (05/05/2022 3:37 PM [facility]IEF [facility]RARIAN CIRCULATION DEPARTMENT) HIV Scr 4th Gen Non Reactive Non Reactive 05/07/2022 10:06 PM CHIEF LIBRARIAN CIRCULATION DEPARTMENT [facility] ([facility]) Comment: HIV Negative HIV-1/HIV-2 antibodies and HIV-1 p24 antigen were NOT detected. There is no laboratory evidence of HIV infection. Blood BLOOD SPECIMEN / Unknown Venipuncture / Unknown 05/05/2022 3:37 PM CHIEF LIBRARIAN CIRCULATION DEPARTMENT 05/05/2022 3:37 PM CHIEF LIBRARIAN CIRCULATION DEPARTMENT Narrative [facility] - 05/07/2022 10:06 PM CHIEF LIBRARIAN CIRCULATION DEPARTMENT Performed at: ??01 - [facility] [address] [place], [place] ??[id number] Roof Service Technician: Oliverio Caba MD, Phone: ??[phone] Stefany Smith DO [facility]) [facility] [place] [id number] * ANTI HCV (12/27/2021 8:39 AM CDT) HEPATITIS C ANTIBODY Non-React kalina Non-React kalina 12/28/2021 12:59 PM CDT [facility] [employer] [facility] Comment:Antibodies to HCV no t detected; does not exclude the possibility of exposure to HCV. Blood BLOOD SPECIMEN / Unknown Venipuncture / Unknown 12/27/2021 8:39 AM CDT 12/27/2021 8:39 AM CDT Stefany Smith DO SEND OUTS [facility] [address] [place] [address], from Last 3 Months or Most Recently Relevant to Health Maintenance Advance Directives * Full Code (Latest Code Status on File) Date Activated Date Inactivated Comments 12/01/2012 3:43 PM 12/08/2012 4:36 PM * Full Code Date Activated Date Inactivated Comments 08/02/2008 11:43 AM 08/02/2008 7:25 PM Care Teams Regional Rehabilitation Director Relationship Specialty Start [place] [address] [place] [address] PCP - General Family Practice 09/26/15
[2023-12-23] MEDS: MECLIZINE HCL 25 MG TABLET PO (11:52)
[2023-12-23] MEDS: MORPHINE 4 MG/ML INJ IVP (11:52)
[2023-12-23] MEDS: ONDANSETRON 2 MG/ML inj 4 MG IVP (11:52)
[2023-12-23 12:01] LABS: Basophils Absolute Auto 0.04 K/uL (0.00-0.30); Basophils Percent Auto 0.4 % (0.0-3.0); Eosinophils Absolute Auto 0.35 K/uL (0.00-0.50); Eosinophils Percent Auto 3.4 % (0.0-7.0); Hematocrit 43.7 % (37.0-53.0); Hemoglobin* 13.9 gm/dL (13.5-17.5); Immature Granulocytes Abs Auto 0.01 K/uL (0.00-0.30); Immature Granulocytes Pct Auto 0.1 %; Lymphocytes Absolute Auto 3.11 K/uL (0.90-2.90); Lymphocytes Percent Auto 29.9 % (20-44); Mean Corpuscular HGB Conc 32 gm/dL (32-36); Mean Corpuscular Hemoglobin 29 pg (26-34); Mean Corpuscular Volume 90 fL (80-100); Monocytes Percent Auto 7.6 % (0.0-11.0); Neutrophils Absolute Auto 6.11 K/uL (1.7-7.0); Neutrophils Percent Auto 58.6 % (42.0-72.0); Platelet Count* 344 K/uL (140-440); Red Blood Count 4.87 m/uL (4.30-5.90); White Blood Count* 10.41 K/uL (4.50-11.00)
[2023-12-23 12:04] LABS: Slide Review Reflex No
[2023-12-23 12:16] LABS: Albumin* 4.5 g/dL (3.3-5.0); Chloride* 103 mmol/L (96-114); Potassium* 4.2 mmol/L (3.6-5.1); Sodium* 139 mmol/L (135-149)
[2023-12-23 12:18] LABS: Creatinine* 0.7 mg/dL (0.5-1.5); Est. Creatinine Clearance* 128.91; Estimated Glomerular Filt Rate 112 ml/min
[2023-12-23 12:19] LABS: Alanine Aminotransferase* 33 U/L (4-50); Alkaline Phosphatase* 89 U/L (40-150); Anion Gap 8 mEq/L (7-15); Aspartate Amino Transferase* 29 U/L (12-35); Bilirubin Direct* 0.2 mg/dL (0.0-0.5); Bilirubin Total* 0.3 mg/dL (0.1-1.5); Blood Urea Nitrogen* 11 mg/dL (7-30); Calcium* 9.1 mg/dL (8.4-10.6); Carbon Dioxide* 28 mmol/L (20-32); Glucose* 98 mg/dL (60-115); Total Protein* 7.4 g/dL (6.0-8.3)
--- NOTE | 2023-12-23 13:02 | ED_ITS ---
[facility] - General Adult General Date Seen: 12/23/23 Chief complaint: Headache/Migraine Stated complaint: Dizzy, sweating, headache Time Seen by Provider: 12/23/23 11:06 Source: patient and family Mode of arrival: ambulatory Limitations: no limitations History of Present Illness HPI narrative: Patient is a 53-year-old male here with his for evaluation of headache and dizziness. He had a remote accident with some injury to C2 and C3, has had radiofrequency ablation on the right previously and then 1 week ago had radiofrequency ablation on the left. Since that procedure he reports a frontal headache and episodes of dizziness primarily with position changes. He has had a couple of bad spinning spells. Right now, sitting still he does not feel significantly dizzy. The headache has been constant. He has pain in the back of his neck, he notes that he always has pain in the back of his neck and that after the radiofrequency ablation it seems to get worse at least in the short te rm. He was on a Medrol Dosepak this is completed now. He has had a little nausea, no vomiting. No other neurologic complaints. No fevers. Has had some intermittent sweats, once when coming in from outside on a hot day but once when he was just inside not doing much of anything. He has not had chest pain, palpitations, shortness of breath. He does not smoke or drink. No other substances. Has a history of diabetes, hypertension. Was put back on gabapentin and oxycodone recently. Related Data Home Medications ?Medication ?Instructions ?Recorded ?Confirmed atorvastatin 40 mg tablet 40 mg PO QPM 11/30/22 11/30/22 buspirone 30 mg tablet 30 mg PO BID 11/30/22 11/30/22 gabapentin 100 mg capsule 100 mg PO BID 11/30/22 11/30/22 hydroxyzine HCl 25 mg tablet 25 mg PO 3XD PRN pain 11/30/22 11/30/22 ibuprofen 600 mg tablet 600 mg PO 3XD 11/30/22 11/30/22 lisinopril 20 mg tablet 20 mg PO DAILY 11/30/22 11/30/22 lurasidone 120 mg tablet 120 mg PO DAILY 11/30/22 11/30/22 metformin 500 mg tablet 500 mg PO BID 11/30/22 11/30/22 oxcarbazepine 600 mg tablet 600 mg PO BID 11/30/22 11/30/22 oxycodone 5 mg tablet 5 - 10 mg PO Q4H PRN moderate pain 11/30/22 11/30/22 pantoprazole 20 mg tablet,delayed 20 mg PO DAILY 11/30/22 11/30/22 release tramadol 50 mg tablet 50 mg PO BID PRN pain 11/30/22 11/30/22 trihexyphenidyl 2 mg tablet 2 mg PO BID 11/30/22 11/30/22 Previous Rx's ?Medication ?Instructions ?Recorded meclizine 25 mg tablet 25 mg PO TID PRN #15 tabs 12/23/23 Allergies Allergy/AdvReac Type Severity Reaction Status Date / Time Weight Loss Medication Allergy Mild Rash Uncoded 11/30/22 20:16 Review of Systems Status of ROS: Reports: 10 or more systems reviewed and unremarkable except as noted in History and below [facility] Social History Smoking Status: Former smoker Do you use any of these nicotine containing products: None Second hand tobacco smoke exposure: No How often do you have a drink containing alcohol: never AUDIT-C Alcohol total score: 0 Non-prescribed substance use: denies use Exam Narrative: Exam Narrative: Vital signs as noted above. In general, an alert, nontoxic male. Breathing comfortably, conversant, cooperative. Head: Normocephalic, atraumatic. Eyes: Pupils are equal reactive. Extraocular movements are full. No nystagmus. Conjunctivae are normal. ENT: Mucous membranes are moist. Throat is normal. Tongue is midline. Neck: Supple without lymphadenopathy. Diffuse mild tenderness in the posterior neck. No meningeal signs. Heart: Regular rate and rhythm. No murmur or rub. Lungs: Clear bilaterally. No increased work of breathing, crackles or wheezes. Abdomen: Soft and nontender. No organomegaly. Extremities: Well perfused. No edema. No calf tenderness. Pulses intact. Neurologic: Patient is alert and oriented to person and place. Speech is fluent. Face is symmetric. Moves all extremities equally. Cerebellar function is intact by finger-nose testing. Gait stable. Affect: Normal. Skin: Warm and dry. Well perfused. Const: Vital Signs, click to edit/add: Vital Signs - 24 hr 12/23/23 10:28 Temperature 97.2 F L Pulse Rate [Pulse Oximeter] 74 Respiratory Rate 18 Blood Pressure [Ri ght Forearm] 153/94 H Pulse Oximetry 97 Oxygen Delivery Me thod Room Air Documenting provider has reviewed patient's vital signs: yes Course Course ED Course: Patient presents with a constant headache for a week and intermittent nausea/dizziness. Because of the neck pain in recent radiofrequency ablation I did elect to do a CT and CT angiogram to evaluate for possible dissection. Overall, neurologic exam is reassuring and the intermittent/positional nature of his symptoms argues against this being related to stroke. He had an IV placed, he was given 4 mg of morphine, 4 mg of Zofran and 25 mg of meclizine. Symptomatically he is feeling improved. CT of the head by my review was negativ e, final radiology read as follows:Findings: Axial noncontrast images through the brain parenchyma demonstrates no acute intracranial hemorrhage or mass. No midline shift. No abnormal extra-axial air or fluid collections are seen. Skull and scalp are unremarkable. Impression: No acute intracranial hemorrhage or mass. Headache dizziness Please note that all CT scans at this facility use dose modulation, iterative reconstruction, and/or weight-based dosing when appropriate to reduce radiation dose to as low as reasonably achievable. Dictated by Janett Saini MD @ 12/23/2023 12:36:[address] angiogram of the head and neck read by Radiology as follows:Preliminary Report: The thoracic aorta is nonaneurysmal. Patent common carotid arteries. The carotid bifurcations are unremarkable without evidence of high-grade stenosis according to NASCET criteria. Mildly tortuous distal internal carotid arteries. Dominant left and mildly hypoplastic right vertebral artery. Dictated by Bg Don MD @ 12/23/2023 12:46:47 PM Read by: Bg Don MD @12/23/2023 12:46:54 PM Preliminary Report: The skull base internal carotid arteries are patent. Patent anterior cerebral and middle cerebral arteries. Patent basilar artery and bilateral posterior cerebral arteries Dictated by Bg Don MD @ 12/23/2023 12:42:55 PM Read by: Bg Don MD @12/23/2023 12:43:02 PM Labs are unremarkable, point of care troponin is 0 and an EKG done here shows a sinus rhythm, ventricular rate of 69. No acute ST segment changes, unremarkable T-waves. I do not think that symptoms are primarily cardiac. His CBC shows a normal white blood cell count, a normal hemoglobin. Metabolic panel is normal, magnesium 2.0, LFTs normal. There is no evidence of dissection or large vessel occlusion. My suspicion for stroke is low as he only seems to have symptoms when he is changing position. I think it is reasonable to discharge home. If he is not improving over the next couple of days, primary care follow-up would be reasonable to see if there is anything else that we need to look at. Certainly for acute worsening, severe vertigo, severe headache, vomiting, new neurologic changes, return to the ER at any time. Meclizine prescribed for symptomatic relief, use ibuprofen and/or Tylenol as needed. Vital Signs Vital signs: Initial Vital Signs Temperature 97.2 F L 12/23/23 10:28 Temperature Source Temporal Artery Scan 12/23/23 10:28 Pulse Rate 74 12/23/23 10:28 Pulse Rhythm Regular 12/23/23 10:28 Respiratory Rate 18 12/23/23 10:28 Blood Pressure 153/94 H 12/23/23 10:28 Blood Pressure Mean 113 H 12/23/23 10:28 Blood Pressure Position Sitting 12/23/23 10:28 Pulse Oximetry 97 12/23/23 10:28 Oxygen Delivery Method Room Air 12/23/23 10:28 Vital Signs Temperature 97.2 F L 12/23/23 10:28 Pulse Rate 74 12/23/23 10:28 Respiratory Rate 18 12/23/23 10:28 Blood Pressure 153/94 H 12/23/23 10:28 Pulse Oximetry 97 12/23/23 10:28 Oxygen Delivery Method Room Air 12/23/23 10:28 Temperature 97.2 F L 12/23/23 10:28 Pulse Rate 74 12/23/23 10:28 Respiratory Rate 18 12/23/23 10:28 Blood Pressure 153/94 H 12/23/23 10:28 Pulse Oximetry 97 12/23/23 10:28 Oxygen Delivery Method Room Air 12/23/23 10:28 Medications Administered Medications: Discontinued Medications Generic Name Dose Route Start Last Admin Trade Name Freq PRN Reason Stop Dose Admin Meclizine HCl 25 mg 12/23/23 11:16 12/23/23 11:52 Meclizine Hcl 25 Mg Tablet PO 12/23/23 11:17 25 mg ONCE ONE Administration Morphine Sulfate 4 mg 12/23/23 11:16 12/23/23 11:52 Morphine 4 Mg/Ml Inj IVP 12/23/23 11:17 4 mg ONCE ONE Administration Ondansetron HCl 4 mg 12/23/23 11:16 12/23/23 11:52 Ondansetron 2 Mg/Ml Inj IVP 12/23/23 11:17 4 mg ONCE ONE Administration Medical Decision Making Lab Data Labs: Lab Results 12/23/23 12/23/23 Range/Units 11:18 11:50 WBC 10.41 (4.50-11.00) K/uL RBC 4.87 (4.30-5.90) m/uL Hgb 13.9 (13.5-17.5) gm/dL Hct 43.7 (37.0-53.0) % MCV 90 (80-100) fL MCH 29 (26-34) pg MCHC 32 (32-36) gm/dL RDW Coeff of Marco Antonio 13.0 (11.5-15.5) % Plt Count 344 (140-440) K/uL Neut % (Auto) 58.6 (42.0-72.0) % Lymph % (Auto) 29.9 (20-44) % [place] % (Auto) 7.6 (0.0-11.0) % Eos % (Auto) 3.4 (0.0-7.0) % Baso % (Auto) 0.4 (0.0-3.0) % Neut # (Auto) 6.11 (1.7-7.0) K/uL Lymph # (Auto) 3.11 H (0.90-2.90) K/uL [place] # (Auto) 0.80 (0.00-0.90) K/UL Eos # (Auto) 0.35 (0.00-0.50) K/uL Baso # (Auto) 0.04 (0.00-0.30) K/uL Abs Immat Gran (auto) 0.01 (0.00-0.30) K/uL Imm/Tot Granulo (auto) 0.1 % Sodium 139 (135-149) mmol/L Potassium 4.2 (3.6-5.1) mmol/L Chloride 103 (96-114) mmol/L Carbon Dioxide 28 (20-32) mmol/L Anion Gap 8 (7-15) mEq/L BUN 11 (7-30) mg/dL Creatinine 0.7 (0.5-1.5) mg/dL Estimated Creat Clear 128.91 Estimated GFR 112 ml/min Glucose 98 (60-115) mg/dL Calcium 9.1 (8.4-10.6) mg/dL Magnesium 2.0 (1.5-2.6) mg/dL Total Bilirubin 0.3 (0.1-1.5) mg/dL Direct Bilirubin 0.2 (0.0-0.5) mg/dL AST 29 (12-35) U/L ALT 33 (4-50) U/L Alkaline Phosphatase 89 (40-150) U/L Total Protein 7.4 (6.0-8.3) g/dL Albumin 4.5 (3.3-5.0) g/dL POC Troponin I 0.00 L (0.01-0.04) ng/ml Discharge Plan Discharge Clinical Impression: Headache, Positional vertigo Patient Disposition: Home, Self-Care Condition: Improved Instructions: Vertigo (DC), General Headache (ED) Additional Instructions: All of your testing today is reassuring. There is no evidence of blockages or tears in the blood vessels as discussed. The CT scan of your head is normal and there is no evidence of bleeding. Your labs are reassuring, your EKG and heart labs are normal. Reason for your symptoms is not entirely clear although sometimes migraine can be associated with some other symptoms such as those your describing. Would recommend following up with your primary care doctor if not improving over the next few days, continue ibuprofen and/or Tylenol as needed. Prescriptions: New meclizine 25 mg tablet 25 mg PO TID PRNQty: 15 0RF No Action atorvastatin 40 mg tablet 40 mg PO QPM metformin 500 mg tablet 500 mg PO BID lisinopril 20 mg tablet 20 mg PO DAILY tramadol 50 mg tablet 50 mg PO BID PRN (Reason: pain) pantoprazole 20 mg tablet,delayed release (DR/EC) 20 mg PO DAILY buspirone 30 mg tablet 30 mg PO BID oxcarbazepine 600 mg tablet 600 mg PO BID hydroxyzine HCl 25 mg tablet 25 mg PO 3XD PRN (Reason: pain) gabapentin 100 mg capsule 100 mg PO BID ibuprofen 600 mg tablet 600 mg PO 3XD trihexyphenidyl 2 mg tablet 2 mg PO BID oxycodone 5 mg tablet 5 - 10 mg PO Q4H PRN (Reason: moderate pain) lurasidone 120 mg tablet 120 mg PO DAILY Follow Up/Referrals: Stefany Smith DO [Primary Care Provider] - Stand Alone Forms: [facility] Info Instructions
== END 2023-12-23 13:14 | disposition home or self-care (01) ==
PROVIDERS: Emergency Provider Emergency Medicine; PCP Family Medicine
DX: R51.9 Headache, unspecified (principal); H81.10 Benign paroxysmal vertigo, unspecified ear
CPT/HCPCS: 36415; 70450; 70496; 70498; 80048; 80076; 83735; 84484; 85025; 93005; 96374; 96375; 99284; 99285; A9270; J2270; J2405; Q9967